=== PATIENT | female | born 1990 | race Caucasian/White ===

== ENCOUNTER 2016-12-15 01:43 | Emergency (ER) | payer OTHER ==
--- NOTE | ~2016-12-15 | CR72 ---
[facility]. [facility] A Service of [facility] & [facility] / [facility] RADIOLOGY TEXT RESULTS PATIENT: CARYL RODRIGUEZ LOCATION: SED : 89 UNIT #: [id number] AGE: [address]: Guido Diaz MD SEX: F ORDER DR: [id number] [place] [id number] E MR#: [id number] Acc #: [id number] NAME: CARYL RODRIGUEZ : 1990 SEX: F STUDY DATE/TIME: 12/15/2016 3:12 UNIT: SED ROOM: STUDY DESCRIPTION: CR Chest Single View Portable Attending Physician: Guido Diaz M.D. Ordering Physician: Guido Diaz M.D. Primary Care Physician: Primary Care Physician No MEDICAL IMAGING REPORT This report is preliminary unless electronic signature is present. EXAM AP portable chest 12/15/2016 03:12 HISTORY Palpitations for 3-4 days. COMPARISON None. FINDINGS A single AP portable view of the chest shows both lungs to be clear. The heart is normal in size. The mediastinal contour is normal. No significant bone abnormalities are seen. IMPRESSION Normal portable chest. Dictated by... Patience Blake M.D. THIS IS AN ELECTRONICALLY VERIFIED REPORT Patience Blake M.D. at 12/15/2016 9:57 PM CONNER/pawan TD: 12/15/2016 12:20 JOB #: [id number] MEDICAL IMAGING REPORT
--- NOTE | ~2016-12-15 | EKG ---
PATIENT: CARYL RODRIGUEZ UNIT #: [id number] Ventricular Rate: 63 BPM Atrial Rate: 63 BPM P-R Interval: 142 ms QRS Duration: 74 ms Q-T Interval: 406 ms QTC Calculation(Bezet): 415 ms P Gilberts: 46 degrees Calculated R Gilberts: 70 degrees Calculated T Gilberts: 67 degrees Diagnosis Line: Normal sinus rhythm with sinus arrhythmia Diagnosis Line: Normal ECG Diagnosis Line: No previous ECGs available Diagnosis Line: Confirmed by MARIE DAWN MD ([id number]) on Diagnosis Line: 12/16/2016 3:30:12 PM INTERPRETING MD: NEREYDA MOHR
[~2016-12-15 01:43] MED LIST: NO MEDICATIONS; PROZAC10 M1 PO
[2016-12-15 03:32] LABS: BASOPHIL% 0.3 % (0-2.5); EOSINOPHIL# 0.3 X10e3 (0-0.7); EOSINOPHIL% 4.6 % (0.0-7.0); HEMATOCRIT 40.4 % (35.0-45.0); HEMOGLOBIN 13.3 gm/dL (12.0-16.0); LYMPHOCYTE# 1.7 X10e3 (1.0-3.5); LYMPHOCYTE% 31.2 % (17.0-45.0); MEAN CELL VOLUME 85.5 FL (83-96); MEAN CORPUSCULAR HEMOGLOBIN 28.1 PG (28-34); MEAN CORPUSCULAR HGB CONC 32.9 g/dL (30-36); MEAN PLATELET VOLUME 8.1 FL (6.5-11.5); MONOCYTE# 0.4 X10e3 (0-1.0); MONOCYTE% 6.9 % (3.0-12.0); NEUTROPHIL# 3.1 X10e3 (1.5-7.1); PLATELET COUNT 234 X10e3 (140-420); RED BLOOD COUNT 4.73 X10e (3.90-5.30); RED CELL DISTRIBUTION WIDTH 12.9 % (11.0-15.5); WHITE BLOOD COUNT 5.5 X10e3 (4.0-10.5)
[2016-12-15 03:42] LABS: DIFF IND NO
[2016-12-15 03:47] LABS: BLOOD UREA NITROGEN 13 mg/dL (9-23); BUN/CREATININE RATIO 21.66; CALCIUM SERUM 9.1 mg/dL (8.4-10.2); CARBON DIOXIDE 26 mmol/L (22-31); CHLORIDE 102 mmol/L (100-111); CREATININE SERUM 0.6 mg/dL (0.6-1.4); GLOM FILT RATE Estimated ABOVE60 mL/min (>60); GLUCOSE FASTING 95 mg/dL (70-110); SODIUM 134 mmol/L (135-145)
== END 2016-12-15 04:52 | disposition home or self-care (01) ==
LOC: SED 01:43
PROVIDERS: Emergency Medicine
DX: R00.2 Palpitations (principal); R20.2 Paresthesia of skin; F32.9 Major depressive disorder, single episode, unspecified; F84.0 Autistic disorder; Z79.899 Other long term (current) drug therapy
CPT/HCPCS: 36415; 71010; 80048; 84443; 85025; 93005; 99283; 99285